=== PATIENT | male | born 1990 | race Caucasian/White ===

== ENCOUNTER 2016-10-09 13:08 | Emergency (ER) | payer OTHER ==
--- NOTE | 2016-10-09 14:23 | DIAGNOSTIC IMAGING REPORT ---
PROCEDURE: XR HAND 3 OR 4 VIEWS - RIGHT INDICATION: TRAUMA/INJURY TECHNIQUE: Four views. COMPARISON: None. FINDINGS: Osseous structures and joint spaces are normal. IMPRESSION: 1. Normal right hand.
--- NOTE | 2016-10-09 14:49 | ED ORDER SUMMARY ---
..... Patient: FRANKY OLSEN OrderSheet [facility] VisitID: [id number] [address] [place] [address] 26y, M Registration Date/Time: 10/09/2016 ORDER SHEET Weight: 108.8 kg (stated) Allergies: No Known Drug Allergy GENERAL ORDERS: Hand 3 or 4V Right Urgent (13:28 10/09/2016 Bonny R.N. per protocol) (Ack 13:29 LNations ER Tech1) (15:10 LNations ER Tech1) Del Wrap (14:48 10/09/2016 Roula Lowe.A.-Miguel) (15:10 LNations ER Tech1) MEDICATION ORDERS: IV FLUIDS: ORDER SHEET NOTES: [Electronically signed by Ree Lopez P.AFox-C (14:53 10/09/2016)] [Electronically signed by Dannielle Shi R.N. (18:15 10/09/2016)] [Electronically locked/signed by Dannielle Shi R.N. (18:15 10/09/2016)]
--- NOTE | 2016-10-09 14:49 | ED CLINICAL REPORT ---
Clinical Report - Physicians/Mid Levels [facility] [address] [place] [address] 10/09/2016 13:11 [id number] Time Seen: 13:32 Oct 09 2016. Arrived- By private vehicle. HISTORY OF PRESENT ILLNESS Chief Complaint: Injury to the hand. The injury happened 2 days. The patient sustained a direct blow. Occurred at an athletic field. Patient is experiencing moderate pain. Patient denies injury to the head or neck. ( patient reports while using a bat while playing softball hand pain to his right hand and some diabetes previously, in the same match he caught a few softballs and his right hand on the palmar surface of his hand and has had pain, swelling. Patient has been icing at home. Patient has not been seen for this injury.). REVIEW OF SYSTEMS The patient has had swelling, and tingling. No weakness. All systems otherwise negative, except as recorded above. PAST HISTORY The patient's dominant hand is the right. He has not had a prior injury to the same area. SOCIAL HISTORY Smoker- current status unknown. No alcohol use or drug use. ADDITIONAL NOTES The nursing notes have been reviewed. PHYSICAL EXAM Vital Signs: 10/09/2016 13:21 BP: 109/77. HR: 85. RR: 18. O2 saturation: 100%. Temp: 98.3 F. Pain level now: 7/10. Appearance: Alert. No acute distress. Head: Head atraumatic. CVS: Normal heart rate and rhythm. Heart sounds normal. Respiratory: No respiratory distress. Breath sounds normal. Skin: Skin warm. Skin intact. Extremities: Thenar eminence, right hand: mild tenderness, moderate swelling and small ecchymosis. Neurovascular intact distally. No laceration, foreign body or deformity. No puncture wound or limitation in movement of the thumb. No wrist injury. Neuro, Vascular and Tendons: Vascular status intact. Capillary refill not prolonged. Motor intact. No functional tendon deficit. Neuro: Oriented X 3. LABS, X-RAYS, AND EKG Rt Hand X-ray: (IMPRESSION: 1. Normal right hand. Electronically Final signed by:Winston Yousif MD 10/09/2016 2:18:53 PM). PROGRESS AND PROCEDURES PROCEDURES (sarah wrap to r. hand). Course of Care: patient here in the ER with fair range of motion, trauma was on the palmar surface of his hand, repetitive from hitting her back, as well as contusion and injury from catching a ball softball in nature. Patient with no signs of fracture, good distal sensation, no pain out of proportion to injury. Has flexibility and inability to move his right thumb. Patient is stable, to follow up outpatient. 10/09/2016 13:21 BP: 109/77. HR: 85. RR: 18. O2 saturation: 100%. Temp: 98.3 F. Pain level now: 11/20. Patient is stable. Symptoms better. Patient/family counseled. Disposition: Discharged. CLINICAL IMPRESSION Crush injury to the left hand and left thumb. INSTRUCTIONS Apply ice. Limit use of your hand. Prescription Medications: Hydrocodone/APAP 5mg / 325mg: take 1 orally every 6 hours as needed for pain. Dispense ten (10). No refill. Ibuprofen 800 mg tablets: take 1 tablet orally every 8 hours for 5 days, as needed for pain. Dispense fifteen (15). No refill. [facility]-up with: [facility], , [address], , [place], [address] Follow up. Call for the next available appointment. (Electronically signed by Ree Lopez P.A.-C 10/09/2016 14:53)
--- NOTE | 2016-10-09 14:49 | ED ORDER SUMMARY ---
..... Patient: FRANKY OLSEN OrderSheet [facility] VisitID: [id number] [address] [place] [address] 26y, M Registration Date/Time: 10/09/2016 ORDER SHEET Weight: 108.8 kg (stated) Allergies: No Known Drug Allergy GENERAL ORDERS: Hand 3 or 4V Right Urgent (13:28 10/09/2016 Bonny R.N. per protocol) (Ack 13:29 LNations ER Tech1) (15:10 LNations ER Tech1) Del Wrap (14:48 10/09/2016 Roula Lowe.A.-Miguel) (15:10 LNations ER Tech1) MEDICATION ORDERS: IV FLUIDS: ORDER SHEET NOTES: [Electronically signed by Ree Lopez P.AFox-C (14:53 10/09/2016)] [Electronically signed by Dannielle Shi R.N. (18:15 10/09/2016)] [Electronically locked/signed by Dannielle Shi R.N. (18:15 10/09/2016)]
--- NOTE | 2016-10-09 14:49 | ED CLINICAL REPORT ---
Clinical Report - Physicians/Mid Levels [facility] [address] [place] [address] 10/09/2016 13:11 [id number] Time Seen: 13:32 Oct 09 2016. Arrived- By private vehicle. HISTORY OF PRESENT ILLNESS Chief Complaint: Injury to the hand. The injury happened 2 days. The patient sustained a direct blow. Occurred at an athletic field. Patient is experiencing moderate pain. Patient denies injury to the head or neck. ( patient reports while using a bat while playing softball hand pain to his right hand and some diabetes previously, in the same match he caught a few softballs and his right hand on the palmar surface of his hand and has had pain, swelling. Patient has been icing at home. Patient has not been seen for this injury.). REVIEW OF SYSTEMS The patient has had swelling, and tingling. No weakness. All systems otherwise negative, except as recorded above. PAST HISTORY The patient's dominant hand is the right. He has not had a prior injury to the same area. SOCIAL HISTORY Smoker- current status unknown. No alcohol use or drug use. ADDITIONAL NOTES The nursing notes have been reviewed. PHYSICAL EXAM Vital Signs: 10/09/2016 13:21 BP: 109/77. HR: 85. RR: 18. O2 saturation: 100%. Temp: 98.3 F. Pain level now: 7/10. Appearance: Alert. No acute distress. Head: Head atraumatic. CVS: Normal heart rate and rhythm. Heart sounds normal. Respiratory: No respiratory distress. Breath sounds normal. Skin: Skin warm. Skin intact. Extremities: Thenar eminence, right hand: mild tenderness, moderate swelling and small ecchymosis. Neurovascular intact distally. No laceration, foreign body or deformity. No puncture wound or limitation in movement of the thumb. No wrist injury. Neuro, Vascular and Tendons: Vascular status intact. Capillary refill not prolonged. Motor intact. No functional tendon deficit. Neuro: Oriented X 3. LABS, X-RAYS, AND EKG Rt Hand X-ray: (IMPRESSION: 1. Normal right hand. Electronically Final signed by:Winston Yousif MD 10/09/2016 2:18:53 PM). PROGRESS AND PROCEDURES PROCEDURES (sarah wrap to r. hand). Course of Care: patient here in the ER with fair range of motion, trauma was on the palmar surface of his hand, repetitive from hitting her back, as well as contusion and injury from catching a ball softball in nature. Patient with no signs of fracture, good distal sensation, no pain out of proportion to injury. Has flexibility and inability to move his right thumb. Patient is stable, to follow up outpatient. 10/09/2016 13:21 BP: 109/77. HR: 85. RR: 18. O2 saturation: 100%. Temp: 98.3 F. Pain level now: 11/20. Patient is stable. Symptoms better. Patient/family counseled. Disposition: Discharged. CLINICAL IMPRESSION Crush injury to the left hand and left thumb. INSTRUCTIONS Apply ice. Limit use of your hand. Prescription Medications: Hydrocodone/APAP 5mg / 325mg: take 1 orally every 6 hours as needed for pain. Dispense ten (10). No refill. Ibuprofen 800 mg tablets: take 1 tablet orally every 8 hours for 5 days, as needed for pain. Dispense fifteen (15). No refill. Follow-up with: [facility], , [address], , [place], [id number] Follow up. Call for the next available appointment. (Electronically signed by Ree Lopez P.A.-C 10/09/2016 14:53)
--- NOTE | 2016-10-09 14:49 | ED NURSING NOTES ---
Clinical Report - Nurses [place] [address] [place] [address] 10/09/2016 13:11 Patient: FRANKY OLSEN TRIAGE Triage time 1321. Acuity: LEVEL 4. Chief Complaint: INJURY TO RIGHT HAND. DAMION COMA SCORE: [place] Coma Scale: 15- eyes open spontaneously (4); best verbal response- oriented x 4 (5); best motor response- obeys commands (6). --13:27 Dannielle Shi R.N. 13:21 10/09/16. BP: 109/77. HR: 85. RR: 18 (unlabored). O2 saturation: 100% on room air. Temp: 98.3 F (oral). Pain level now: 10. --13:27 Dannielle Shi R.N. Weight: 108.8 kg stated. Height/Length: 71 inches Per Patient. BMI: 33.5. --13:21 Dannielle Shi R.N. Medications None. --13:26 Dannielle Shi R.N. Allergies No Known Drug Allergy. --13:26 Dannielle Shi R.N. Medication/allergy information source: the patient. --13:27 Dannielle Shi R.N. History Arrived by private vehicle. Historian: patient. Accompanied by family. Primary physician ([facility]). ( pt c/o right hand injury, hand swelling x 2 days. pt states he hit a ball off the bat and caught a couple of hard hits.). This occurred (2 days ago). Occurred at an athletic field. Mechanism of injury: a blow. 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 SOCIAL HX: Light tobacco smoker (cigarette)- less than 1/2 a pack per day. No alcohol use or drug use. ABUSE ASSESSMENT: No report of abuse. FALL RISK ASSESSMENT: Fall risk assessment completed. No fall risk identified. NUTRITIONAL RISK ASSESSMENT: The nutritional risk assessment revealed no deficiencies. FUNCTIONAL ASSESSMENT: Functional assessment: no impairments noted. LEARNING NEEDS ASSESSMENT: The learning needs assessment revealed no barriers. SKIN INTEGRITY ASSESSMENT: Skin integrity risk assessment completed. No skin integrity risk identified. --13:27 Dannielle Shi R.N. PROBLEMS: Myocardial Infarction. --13:27 Dannielle Shi R.N. ADDITIONAL SURGERIES: no known surgeries. Interventions ID band on patient. To treatment room. --13:27 Dannielle Shi R.N. PHYSICAL ASSESSMENT 13:31. Ambulatory to room. GENERAL / NEURO / PSYCH: Oriented X 4. Alert. Appears in no acute distress. EXTREMITIES: Limited ROM present in the right hand (due to pain). Capillary refill is less than 2 seconds in the extremities. Extremity pulses are within normal limits. Thenar eminence, right hand: swelling. SKIN: Skin intact. Skin is warm and dry. --13:44 Dannielle Shi R.N. NURSING PROGRESS NOTES 13:31. Cold pack applied. Patient identifiers checked. Patient placed in chair. Patient ready for evaluation. --13:43 Dannielle Shi R.N. pt sitting in triage room, waiting for x-ray results. --14:23 Dannielle Shi R.N. DISPOSITION / DISCHARGE Departure time: 1515. No learning barriers present. Discharge instructions provided and reviewed with the patient. Reviewed medication(s). Prescription(s) given to the patient ([place], Ibuprofen). Work note given. Patient verbalized understanding. Written instructions provided in Irish. The patient was discharged by the physician credit assistant. He was discharged home and accompanied by parent. He left the Emergency Department ambulatory and via private vehicle. Parent driving. Medication list reviewed and validated with the patient. --15:17 Dannielle Shi R.N. 15:15 10/09/16. BP: deferred. HR: deferred. RR: deferred. O2 saturation: deferred. Temp: deferred. Pain level now deferred. --15:17 Dannielle Shi R.N. Locked/Released at 10/09/2016 18:15 by Dannielle Shi R.N.
--- NOTE | 2016-10-09 14:49 | ED NURSING NOTES ---
Clinical Report - Nurses [place] [address] [place] [address] 10/09/2016 13:11 Patient: FRANKY OLSEN TRIAGE Triage time 1321. Acuity: LEVEL 4. Chief Complaint: INJURY TO RIGHT HAND. DAMION COMA SCORE: [place] Coma Scale: 15- eyes open spontaneously (4); best verbal response- oriented x 4 (5); best motor response- obeys commands (6). --13:27 Dannielle Shi R.N. 13:21 10/09/16. BP: 109/77. HR: 85. RR: 18 (unlabored). O2 saturation: 100% on room air. Temp: 98.3 F (oral). Pain level now: 10. --13:27 Dannielle Shi R.N. Weight: 108.8 kg stated. Height/Length: 71 inches Per Patient. BMI: 33.5. --13:21 Dannielle Shi R.N. Medications None. --13:26 Dannielle Shi R.N. Allergies No Known Drug Allergy. --13:26 Dannielle Shi R.N. Medication/allergy information source: the patient. --13:27 Dannielle Shi R.N. History Arrived by private vehicle. Historian: patient. Accompanied by family. Primary physician ([facility]). ( pt c/o right hand injury, hand swelling x 2 days. pt states he hit a ball off the bat and caught a couple of hard hits.). This occurred (2 days ago). Occurred at an athletic field. Mechanism of injury: a blow. 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 SOCIAL HX: Light tobacco smoker (cigarette)- less than 1/2 a pack per day. No alcohol use or drug use. ABUSE ASSESSMENT: No report of abuse. FALL RISK ASSESSMENT: Fall risk assessment completed. No fall risk identified. NUTRITIONAL RISK ASSESSMENT: The nutritional risk assessment revealed no deficiencies. FUNCTIONAL ASSESSMENT: Functional assessment: no impairments noted. LEARNING NEEDS ASSESSMENT: The learning needs assessment revealed no barriers. SKIN INTEGRITY ASSESSMENT: Skin integrity risk assessment completed. No skin integrity risk identified. --13:27 Dannielle Shi R.N. PROBLEMS: Myocardial Infarction. --13:27 Dannielle Shi R.N. ADDITIONAL SURGERIES: no known surgeries. Interventions ID band on patient. To treatment room. --13:27 Dannielle Shi R.N. PHYSICAL ASSESSMENT 13:31. Ambulatory to room. GENERAL / NEURO / PSYCH: Oriented X 4. Alert. Appears in no acute distress. EXTREMITIES: Limited ROM present in the right hand (due to pain). Capillary refill is less than 2 seconds in the extremities. Extremity pulses are within normal limits. Thenar eminence, right hand: swelling. SKIN: Skin intact. Skin is warm and dry. --13:44 Dannielle Shi R.N. NURSING PROGRESS NOTES 13:31. Cold pack applied. Patient identifiers checked. Patient placed in chair. Patient ready for evaluation. --13:43 Dannielle Shi R.N. pt sitting in triage room, waiting for x-ray results. --14:23 Dannielle Shi R.N. DISPOSITION / DISCHARGE Departure time: 1515. No learning barriers present. Discharge instructions provided and reviewed with the patient. Reviewed medication(s). Prescription(s) given to the patient ([place], Ibuprofen). Work note given. Patient verbalized understanding. Written instructions provided in [place]. The patient was discharged by the physician health center assistant. He was discharged home and accompanied by parent. He left the Emergency Department ambulatory and via private vehicle. Parent driving. Medication list reviewed and validated with the patient. --15:17 Dannielle Shi R.N. 15:15 10/09/16. BP: deferred. HR: deferred. RR: deferred. O2 saturation: deferred. Temp: deferred. Pain level now deferred. --15:17 Dannielle Shi R.N. Locked/Released at 10/09/2016 18:15 by Dannielle Shi R.N.
--- NOTE | 2016-10-09 18:15 | ED MAR SUMMARY ---
..... Medication Administration Record [facility] [address] [place], [place] [id number] Patient: FRANKY OLSEN Visit ID: [id number] 26y, M Weight: 108.8 kg Height/Length: 71 in BMI: 33.5 ALLERGIES: No Known Drug Allergy
--- NOTE | 2016-10-09 18:15 | ED MAR SUMMARY ---
..... Medication Administration Record [facility] [address] [place], [place] [id number] Patient: FRANKY OLSEN Visit ID: [id number] 26y, M Weight: 108.8 kg Height/Length: 71 in BMI: 33.5 ALLERGIES: No Known Drug Allergy
--- NOTE | 2016-10-09 18:15 | ED DISCHARGE INSTRUCTIONS ---
Patient: FRANKY OLSEN General Instructions [facility] VisitID: [id number] [address] [place] [address] 26y, M Registration Date/Time: 10/09/2016 Crush injury to the left hand and left thumb. INSTRUCTIONS Apply ice. Limit use of your hand. Prescription Medications: Hydrocodone/APAP 5mg / 325mg: take 1 orally every 6 hours as needed for pain. Dispense ten (10). No refill. Ibuprofen 800 mg tablets: take 1 tablet orally every 8 hours for 5 days, as needed for pain. Dispense fifteen (15). No refill. Follow-up with: [facility], , [address], [place], [address] Follow up. Call for the next available appointment. ADDITIONAL INFORMATION Crush Injury: Hand [No Fx] You have a CRUSH INJURY of your HAND. This causes local pain, swelling and sometimes bruising. There are no broken bones. This injury may take from a few days to a few weeks to heal. If the FINGERNAIL has been severely injured, it may fall off in 1-2 weeks. A new one will usually start to grow back within a month. Home Care: Keep your hand elevated to reduce pain and swelling. When sitting or lying down elevate your arm above the level of your heart. You can do this by placing your arm on a pillow that rests on your chest or on a pillow at your side. This is most important during the first 48 hours after injury. Apply an ice pack (ice cubes in a plastic bag, wrapped in a towel) over the injured area for 20 minutes every 1-2 hours the first day for pain relief. Continue this 3-4 times a day until the pain and swelling goes away. You may use acetaminophen (Tylenol) or ibuprofen (Motrin, Advil) to control pain, unless another pain medicine was prescribed. [ NOTE : If you have chronic liver or kidney disease or ever had a stomach ulcer or GI bleeding, talk with your doctor before using these medicines.] Keep the splint/cast dry at all times. Bathe with your splint/cast well out of the water, protected with a large plastic bag, rubber-banded at the top end. If a fiberglass cast or splint gets wet, you can dry it with a hair-dryer. Follow Up with your doctor as advised if you are not starting to improve within the next THREE days. [NOTE: If X-rays were taken, they will be reviewed by a radiologist. You will be notified of any new findings that may affect your care.] Get Prompt Medical Attention if any of the following occur: The plaster cast or splint becomes wet or soft The fiberglass cast or splint remains wet for more than 24 hours Increased tightness or pain under the cast or splint Fingers become swollen, cold, blue, numb or tingly Redness, warmth, swelling, drainage from the wound, or foul odor from a cast or splint Fever of 100.4F(38C) or higher, or as directed by your healthcare provider Hydrocodone Bitartrate, Acetaminophen Oral tablet What is this medicine? ACETAMINOPHEN; HYDROCODONE (a set a LUIS EDUARDO lyn fen; casimiro droe KOE done) is a pain reliever. It is used to treat mild to moderate pain. How should I use this medicine? Take this medicine by mouth. Swallow it with a full glass of water. Follow the directions on the prescription label. If the medicine upsets your stomach, take the medicine with food or milk. Do not take more than you are told to take. Talk to your vp design regarding the use of this medicine in children. This medicine is not approved for use in children. What side effects may I notice from receiving this medicine? Side effects that you should report to your doctor or health child care coordinator as soon as possible: allergic reactions like skin rash, itching or hives, swelling of the face, lips, or tongue breathing problems confusion feeling faint or lightheaded, falls stomach pain yellowing of the eyes or skin Side effects that usually do not require medical attention (report to your doctor or health child care coordinator if they continue or are bothersome): nausea, vomiting stomach upset What may interact with this medicine? alcohol antihistamines isoniazid medicines for depression, anxiety, or psychotic disturbances medicines for sleep muscle relaxants naltrexone narcotic medicines (opiates) for pain phenobarbital ritonavir tramadol What if I miss a dose? If you miss a dose, take it as soon as you can. If it is almost time for your next dose, take only that dose. Do not take double or extra doses. Where should I keep my medicine? Keep out of the reach of children. This medicine can be abused. Keep your medicine in a safe place to protect it from theft. Do not share this medicine with anyone. Selling or giving away this medicine is dangerous and against the law. Store at room temperature between 15 and 30 degrees C (59 and 86 degrees F). Protect from light. Keep container tightly closed. Throw away any unused medicine after the expiration date. Discard unused medicine and used packaging carefully. Pets and children can be harmed if they find used or lost packages. What should I tell my health care provider before I take this medicine? They need to know if you have any of these conditions: brain tumor Crohn's disease, inflammatory bowel disease, or ulcerative colitis drink more than 3 alcohol-containing drinks per day drug abuse or addiction head injury heart or circulation problems kidney disease or problems going to the bathroom liver disease lung disease, asthma, or breathing problems an unusual or allergic reaction to acetaminophen, hydrocodone, other opioid analgesics, other medicines, foods, dyes, or preservatives or trying to get breast-feeding What should I watch for while using this medicine? Tell your doctor or health child care coordinator if your pain does not go away, if it gets worse, or if you have new or a different type of pain. You may develop tolerance to the medicine. Tolerance means that you will need a higher dose of the medicine for pain relief. Tolerance is normal and is expected if you take the medicine for a long time. Do not suddenly stop taking your medicine because you may develop a severe reaction. Your body becomes used to the medicine. This does NOT mean you are addicted. Addiction is a behavior related to getting and using a drug for a non-medical reason. If you have pain, you have a medical reason to take pain medicine. Your doctor will tell you how much medicine to take. If your doctor wants you to stop the medicine, the dose will be slowly lowered over time to avoid any side effects. You may get drowsy or dizzy when you first start taking the medicine or change doses. Do not drive, use machinery, or do anything that may be dangerous until you know how the medicine affects you. Stand or sit up slowly. There are different types of narcotic medicines (opiates) for pain. If you take more than one type at the same time, you may have more side effects. Give your health care provider a list of all medicines you use. Your doctor will tell you how much medicine to take. Do not take more medicine than directed. Call emergency for help if you have problems breathing. The medicine will cause constipation. Try to have a bowel movement at least every 2 to 3 days. If you do not have a bowel movement for 3 days, call your doctor or health child care coordinator. Too much acetaminophen can be very dangerous. Do not take Tylenol (acetaminophen) or medicines that contain acetaminophen with this medicine. Many non-prescription medicines contain acetaminophen. Always read the labels carefully. You have been given the following additional information: Crush Injury, Hand/Finger Hydrocodone Bitartrate, Acetaminophen Oral tablet Limit use of your hand. (Electronically signed by Ree Lopez P.A.-C 10/09/2016 14:53)
--- NOTE | 2016-10-09 18:15 | ED MED RECONCILIATION SUMMARY ---
Patient: FRANKY OLSEN Medication Reconciliation Report [facility] VisitID: [id number] [address] [place] [address] 26y, M Registration Date/Time: 10/09/2016 Weight: 108.8 kg Height/Length: 71 in. BMI: 33.5 ALLERGIES: No Known Drug Allergy The patient's Home Medications are listed below: NONE. The source(s) of the original Home Medication information: patient The following Medications were given to the patient in the Emergency Department: None. The following Medications were prescribed to the patient: Hydrocodone/APAP 5mg / 325mg: take 1 orally every 6 hours as needed for pain. Dispense ten (10). No refill. -- Ree Lopez, P.A.-C Ibuprofen 800 mg tablets: take 1 tablet orally every 8 hours for 5 days, as needed for pain. Dispense fifteen (15). No refill. -- Ree Lopez, P.A.-C
--- NOTE | 2016-10-09 18:15 | ED DISCHARGE INSTRUCTIONS ---
Patient: FRANKY OLSEN General Instructions [facility] VisitID: [id number] [address] [place] [address] 26y, M Registration Date/Time: 10/09/2016 Crush injury to the left hand and left thumb. INSTRUCTIONS Apply ice. Limit use of your hand. Prescription Medications: Hydrocodone/APAP 5mg / 325mg: take 1 orally every 6 hours as needed for pain. Dispense ten (10). No refill. Ibuprofen 800 mg tablets: take 1 tablet orally every 8 hours for 5 days, as needed for pain. Dispense fifteen (15). No refill. Follow-up with: [facility], , [address], [place], [id number] Follow up. Call for the next available appointment. ADDITIONAL INFORMATION Crush Injury: Hand [No Fx] You have a CRUSH INJURY of your HAND. This causes local pain, swelling and sometimes bruising. There are no broken bones. This injury may take from a few days to a few weeks to heal. If the FINGERNAIL has been severely injured, it may fall off in 1-2 weeks. A new one will usually start to grow back within a month. Home Care: Keep your hand elevated to reduce pain and swelling. When sitting or lying down elevate your arm above the level of your heart. You can do this by placing your arm on a pillow that rests on your chest or on a pillow at your side. This is most important during the first 48 hours after injury. Apply an ice pack (ice cubes in a plastic bag, wrapped in a towel) over the injured area for 20 minutes every 1-2 hours the first day for pain relief. Continue this 3-4 times a day until the pain and swelling goes away. You may use acetaminophen (Tylenol) or ibuprofen (Motrin, Advil) to control pain, unless another pain medicine was prescribed. [ NOTE : If you have chronic liver or kidney disease or ever had a stomach ulcer or GI bleeding, talk with your doctor before using these medicines.] Keep the splint/cast dry at all times. Bathe with your splint/cast well out of the water, protected with a large plastic bag, rubber-banded at the top end. If a fiberglass cast or splint gets wet, you can dry it with a hair-dryer. Follow Up with your doctor as advised if you are not starting to improve within the next THREE days. [NOTE: If X-rays were taken, they will be reviewed by a radiologist. You will be notified of any new findings that may affect your care.] Get Prompt Medical Attention if any of the following occur: The plaster cast or splint becomes wet or soft The fiberglass cast or splint remains wet for more than 24 hours Increased tightness or pain under the cast or splint Fingers become swollen, cold, blue, numb or tingly Redness, warmth, swelling, drainage from the wound, or foul odor from a cast or splint Fever of 100.4F(38C) or higher, or as directed by your healthcare provider Hydrocodone Bitartrate, Acetaminophen Oral tablet What is this medicine? ACETAMINOPHEN; HYDROCODONE (a set a LUIS EDUARDO lyn fen; casimiro droe KOE done) is a pain reliever. It is used to treat mild to moderate pain. How should I use this medicine? Take this medicine by mouth. Swallow it with a full glass of water. Follow the directions on the prescription label. If the medicine upsets your stomach, take the medicine with food or milk. Do not take more than you are told to take. Talk to your certified physical therapist assistant regarding the use of this medicine in children. This medicine is not approved for use in children. What side effects may I notice from receiving this medicine? Side effects that you should report to your doctor or health chiropractic care as soon as possible: allergic reactions like skin rash, itching or hives, swelling of the face, lips, or tongue breathing problems confusion feeling faint or lightheaded, falls stomach pain yellowing of the eyes or skin Side effects that usually do not require medical attention (report to your doctor or health chiropractic care if they continue or are bothersome): nausea, vomiting stomach upset What may interact with this medicine? alcohol antihistamines isoniazid medicines for depression, anxiety, or psychotic disturbances medicines for sleep muscle relaxants naltrexone narcotic medicines (opiates) for pain phenobarbital ritonavir tramadol What if I miss a dose? If you miss a dose, take it as soon as you can. If it is almost time for your next dose, take only that dose. Do not take double or extra doses. Where should I keep my medicine? Keep out of the reach of children. This medicine can be abused. Keep your medicine in a safe place to protect it from theft. Do not share this medicine with anyone. Selling or giving away this medicine is dangerous and against the law. Store at room temperature between 15 and 30 degrees C (59 and 86 degrees F). Protect from light. Keep container tightly closed. Throw away any unused medicine after the expiration date. Discard unused medicine and used packaging carefully. Pets and children can be harmed if they find used or lost packages. What should I tell my health care provider before I take this medicine? They need to know if you have any of these conditions: brain tumor Crohn's disease, inflammatory bowel disease, or ulcerative colitis drink more than 3 alcohol-containing drinks per day drug abuse or addiction head injury heart or circulation problems kidney disease or problems going to the bathroom liver disease lung disease, asthma, or breathing problems an unusual or allergic reaction to acetaminophen, hydrocodone, other opioid analgesics, other medicines, foods, dyes, or preservatives or trying to get breast-feeding What should I watch for while using this medicine? Tell your doctor or health chiropractic care if your pain does not go away, if it gets worse, or if you have new or a different type of pain. You may develop tolerance to the medicine. Tolerance means that you will need a higher dose of the medicine for pain relief. Tolerance is normal and is expected if you take the medicine for a long time. Do not suddenly stop taking your medicine because you may develop a severe reaction. Your body becomes used to the medicine. This does NOT mean you are addicted. Addiction is a behavior related to getting and using a drug for a non-medical reason. If you have pain, you have a medical reason to take pain medicine. Your doctor will tell you how much medicine to take. If your doctor wants you to stop the medicine, the dose will be slowly lowered over time to avoid any side effects. You may get drowsy or dizzy when you first start taking the medicine or change doses. Do not drive, use machinery, or do anything that may be dangerous until you know how the medicine affects you. Stand or sit up slowly. There are different types of narcotic medicines (opiates) for pain. If you take more than one type at the same time, you may have more side effects. Give your health care provider a list of all medicines you use. Your doctor will tell you how much medicine to take. Do not take more medicine than directed. Call emergency for help if you have problems breathing. The medicine will cause constipation. Try to have a bowel movement at least every 2 to 3 days. If you do not have a bowel movement for 3 days, call your doctor or health chiropractic care. Too much acetaminophen can be very dangerous. Do not take Tylenol (acetaminophen) or medicines that contain acetaminophen with this medicine. Many non-prescription medicines contain acetaminophen. Always read the labels carefully. You have been given the following additional information: Crush Injury, Hand/Finger Hydrocodone Bitartrate, Acetaminophen Oral tablet Limit use of your hand. (Electronically signed by Ree Lopez P.A.-C 10/09/2016 14:53)
--- NOTE | 2016-10-09 18:15 | ED MED RECONCILIATION SUMMARY ---
Patient: FRANKY OLSEN Medication Reconciliation Report [facility] VisitID: [id number] [address] [place] [address] 26y, M Registration Date/Time: 10/09/2016 Weight: 108.8 kg Height/Length: 71 in. BMI: 33.5 ALLERGIES: No Known Drug Allergy The patient's Home Medications are listed below: NONE. The source(s) of the original Home Medication information: patient The following Medications were given to the patient in the Emergency Department: None. The following Medications were prescribed to the patient: Hydrocodone/APAP 5mg / 325mg: take 1 orally every 6 hours as needed for pain. Dispense ten (10). No refill. -- Ree Lopez, P.A.-C Ibuprofen 800 mg tablets: take 1 tablet orally every 8 hours for 5 days, as needed for pain. Dispense fifteen (15). No refill. -- Ree Lopez, P.A.-C
== END 2016-10-09 15:15 | disposition home or self-care (01) ==
LOC: ED SRH 13:08
DX: S67.21XA Crushing injury of right hand, initial encounter (principal); S67.01XA Crushing injury of right thumb, initial encounter; W21.11XA Struck by baseball bat, initial encounter; Y93.64 Activity, baseball; Y99.9 Unspecified external cause status; Y92.320 Baseball field as the place of occurrence of the external cause